=== PATIENT | male | born 1955 | race Caucasian/White ===

== ENCOUNTER 2018-04-25 12:12 | Inpatient (IN) ==
[2018-04-25 13:26] LABS: Troponin I Only < 0.015 NG/ML (0.00-0.045)
[2018-04-25 14:14] LABS: Basophils # 0.1 10*3/uL (0.0-0.2); Basophils % 0.6 % (0.0-0.8); Eosinophils # 0.1 10*3/uL (0.0-0.87); Eosinophils % 0.8 % (0.00-10.9); Hematocrit 42.8 VOL% (42.0-52.0); Hemoglobin 14.6 GM/DL (14.0-18.0); Immature Granulocytes % 0.4 %; Immature Granulocytes Absolute 0.04 #; Lymphocytes # 1.5 10*3/uL (1.4-4.0); Lymphocytes % 14.5 % (21.2-54.2); Mean Corpuscular HGB Conc 34.1 GM/DL (32-36); Mean Corpuscular Hemoglobin 32 PG (27-34); Mean Corpuscular Volume 93.4 FL (87-102); Mean Platelet Volume 10.7 FL (9.6-12.0); Monocytes # 0.6 10*3/uL (0.11-0.8); Monocytes % 5.2 % (1.7-12.7); Neutrophils # 8.4 10*3/uL (1.4-7.4); Neutrophils % 78.5 % (38.7-73.9); Platelet Count 163 T/CUMM (130-400); Red Blood Count 4.58 MC/CUMM (3.8-5.5); Red Cell Distribution Width 12.5 % (9.3-17.3); White Blood Count 10.6 T/CUMM (4-12)
[2018-04-25 14:20] LABS: PT Patient Result 10.9 SECS
[2018-04-25 14:33] LABS: Albumin 3.7 G/DL (3.4-5.0); Bilirubin,Total 0.5 MG/DL (0.2-1.0); Calcium 8.7 MG/DL (8.5-10.1); Osmolality,Calculated 282.4 MOS/KG (273-304); Potassium 4.6 MMOL/L (3.5-5.1); Total Protein 7.5 G/DL (6.4-8.3)
[2018-04-25] MEDS ORDERED: LEVOFLOXACIN INJ 500 MG in PREMIX 1 EACH IV STA (15:21)
[2018-04-25] MEDS ORDERED: LORazepam 2 MG/1 ML VIAL IV PRN (16:05)
[2018-04-25] MEDS ORDERED: DEXTROSE 50% 25 GM/50 ML VIAL IV PRN (16:05)
[2018-04-25] MEDS ORDERED: ACETAMINOPHEN 325 MG TABLET PO PRN (16:05)
[2018-04-25] MEDS ORDERED: ALBUTEROL 2.5 MG/3 ML NEB RESP TX PRN (16:05)
[2018-04-25] MEDS ORDERED: ONDANSETRON 4 MG/2 ML VIAL IV PRN (16:05)
[2018-04-25] MEDS ORDERED: GLUCAGON 1 MG VIAL IM PRN (16:05)
[2018-04-25] MEDS ORDERED: NITROGLYCERIN SL 0.4 MG TABLET SL PRN (16:12)
[2018-04-25] MEDS: ALBUTEROL/IPRATROPIUM 3 ML NEB RESP TX SCH (19:25)
[2018-04-25] MEDS: guaiFENesin/DM ER 600-30 MG TABLET PO SCH (20:38)
[2018-04-25] MEDS: tiZANidine 4 MG TABLET PO SCH (20:39)
[2018-04-25] MEDS: PREGABALIN 50 MG CAPSULE PO SCH (20:39)
[2018-04-25] MEDS: ENOXAPARIN 40 MG/0.4 ML SYRINGE SUBCUT SCH (20:40)
[2018-04-25] MEDS: INSULIN REGULAR 100 UNIT/ML SUBCUT SCH ×2 (20:41→23:45)
[2018-04-26] MEDS: ALBUTEROL/IPRATROPIUM 3 ML NEB RESP TX SCH ×4 (00:52→19:43)
[2018-04-26 07:04] LABS: Basophils # 0.1 10*3/uL (0.0-0.2); Basophils % 0.4 % (0.0-0.8); Eosinophils # 0.1 10*3/uL (0.0-0.87); Hematocrit 36.9 VOL% (42.0-52.0); Hemoglobin 12.5 GM/DL (14.0-18.0); Immature Granulocytes % 0.3 %; Immature Granulocytes Absolute 0.04 #; Lymphocytes # 4.1 10*3/uL (1.4-4.0); Mean Corpuscular HGB Conc 33.9 GM/DL (32-36); Mean Corpuscular Hemoglobin 32 PG (27-34); Mean Corpuscular Volume 94.4 FL (87-102); Monocytes # 1.1 10*3/uL (0.11-0.8); Monocytes % 7.9 % (1.7-12.7); Neutrophils # 8.8 10*3/uL (1.4-7.4); Neutrophils % 61.4 % (38.7-73.9); Platelet Count 131 T/CUMM (130-400); Red Blood Count 3.91 MC/CUMM (3.8-5.5); Red Cell Distribution Width 12.7 % (9.3-17.3); White Blood Count 14.3 T/CUMM (4-12)
[2018-04-26 07:36] LABS: Albumin 3.1 G/DL (3.4-5.0); Bilirubin,Total 1.3 MG/DL (0.2-1.0); Calcium 9.1 MG/DL (8.5-10.1); Osmolality,Calculated 282.3 MOS/KG (273-304); Potassium 3.8 MMOL/L (3.5-5.1); Total Protein 6.8 G/DL (6.4-8.3)
[2018-04-26] MEDS: INSULIN REGULAR 100 UNIT/ML SUBCUT SCH ×4 (08:11→21:57)
[2018-04-26] MEDS ORDERED: PANTOPRAZOLE 40 MG TABLET PO SCH (09:00)
[2018-04-26] MEDS: SERTRALINE 50 MG TABLET PO SCH (09:35)
[2018-04-26] MEDS: METOPROLOL TARTRATE 50 MG TABLET PO SCH (09:35)
[2018-04-26] MEDS: MELOXICAM 7.5 MG TABLET PO SCH (09:36)
[2018-04-26] MEDS: MULTIVITAMIN (CENTRUM) TABLET PO SCH (09:36)
[2018-04-26] MEDS: POTASSIUM CHLORIDE 20 MEQ TABLET PO SCH (09:36)
[2018-04-26] MEDS: ATORVASTATIN 40 MG TABLET PO SCH (09:36)
[2018-04-26] MEDS: PANTOPRAZOLE 40 MG TABLET PO SCH (09:36)
[2018-04-26] MEDS: guaiFENesin/DM ER 600-30 MG TABLET PO SCH ×2 (09:36→21:56)
[2018-04-26] MEDS: PREGABALIN 50 MG CAPSULE PO SCH ×3 (09:36→21:56)
[2018-04-26] MEDS: FOLIC ACID 1 MG TABLET PO SCH (09:36)
[2018-04-26] MEDS: THIAMINE 100 MG TABLET PO SCH (09:36)
[2018-04-26] MEDS: FUROSEMIDE 20 MG TABLET PO SCH (09:36)
[2018-04-26] MEDS: ASPIRIN 325 MG TABLET PO SCH (09:37)
[2018-04-26] MEDS: FLUTICASONE 50 MCG NASAL SPRAY 16 GM BOTTLE BOTH NARES SCH (09:38)
[2018-04-26] MEDS ORDERED: tiZANidine 4 MG TABLET PO PRN (11:15)
[2018-04-26] MEDS: tiZANidine 4 MG TABLET PO SCH (16:05)
[2018-04-26] MEDS ORDERED: LEVOFLOXACIN INJ 750 MG in PREMIX 1 EACH IV SCH (16:30)
[2018-04-26] MEDS: ENOXAPARIN 40 MG/0.4 ML SYRINGE SUBCUT SCH (21:56)
[2018-04-27] MEDS: ALBUTEROL/IPRATROPIUM 3 ML NEB RESP TX SCH ×2 (00:25→07:27)
[2018-04-27 06:45] LABS: Basophils # 0.1 10*3/uL (0.0-0.2); Basophils % 0.7 % (0.0-0.8); Eosinophils # 0.2 10*3/uL (0.0-0.87); Eosinophils % 2.3 % (0.00-10.9); Hematocrit 37.3 VOL% (42.0-52.0); Hemoglobin 13.2 GM/DL (14.0-18.0); Immature Granulocytes % 0.3 %; Immature Granulocytes Absolute 0.03 #; Lymphocytes # 4.3 10*3/uL (1.4-4.0); Lymphocytes % 42.1 % (21.2-54.2); Mean Corpuscular HGB Conc 35.4 GM/DL (32-36); Mean Corpuscular Hemoglobin 33 PG (27-34); Mean Corpuscular Volume 92.6 FL (87-102); Mean Platelet Volume 10.5 FL (9.6-12.0); Monocytes # 0.6 10*3/uL (0.11-0.8); Monocytes % 6.3 % (1.7-12.7); Neutrophils # 4.9 10*3/uL (1.4-7.4); Neutrophils % 48.3 % (38.7-73.9); Platelet Count 132 T/CUMM (130-400); Red Blood Count 4.03 MC/CUMM (3.8-5.5); Red Cell Distribution Width 12.6 % (9.3-17.3); White Blood Count 10.1 T/CUMM (4-12)
[2018-04-27 07:22] LABS: Calcium 8.8 MG/DL (8.5-10.1); Osmolality,Calculated 280.3 MOS/KG (273-304); Potassium 3.7 MMOL/L (3.5-5.1)
[2018-04-27] MEDS: ATORVASTATIN 40 MG TABLET PO SCH (09:07)
[2018-04-27] MEDS: SERTRALINE 50 MG TABLET PO SCH (09:07)
[2018-04-27] MEDS: INSULIN REGULAR 100 UNIT/ML SUBCUT SCH ×2 (09:07→13:41)
[2018-04-27] MEDS: guaiFENesin/DM ER 600-30 MG TABLET PO SCH (09:08)
[2018-04-27] MEDS: METOPROLOL TARTRATE 50 MG TABLET PO SCH (09:08)
[2018-04-27] MEDS: MULTIVITAMIN (CENTRUM) TABLET PO SCH (09:08)
[2018-04-27] MEDS: PANTOPRAZOLE 40 MG TABLET PO SCH (09:08)
[2018-04-27] MEDS: ASPIRIN 325 MG TABLET PO SCH (09:08)
[2018-04-27] MEDS: MELOXICAM 7.5 MG TABLET PO SCH (09:08)
[2018-04-27] MEDS: FUROSEMIDE 20 MG TABLET PO SCH (09:08)
[2018-04-27] MEDS: FOLIC ACID 1 MG TABLET PO SCH (09:08)
[2018-04-27] MEDS: THIAMINE 100 MG TABLET PO SCH (09:08)
[2018-04-27] MEDS: PREGABALIN 50 MG CAPSULE PO SCH (09:09)
[2018-04-27] MEDS: FLUTICASONE 50 MCG NASAL SPRAY 16 GM BOTTLE BOTH NARES SCH (09:09)
[2018-04-27] MEDS: POTASSIUM CHLORIDE 20 MEQ TABLET PO SCH (09:25)
[2018-04-27 12:23] VITALS: BP 132/68
== END 2018-04-27 13:55 | disposition home or self-care (01) | DRG 195 ==
LOC: N.ED 12:12 → N.EDINP 15:44 → N.5E 16:43
PROVIDERS: ADMIT Internal Medicine; ATTEND Internal Medicine